=== PATIENT | female | born 1950 | race Caucasian/White ===

== ENCOUNTER 2020-11-16 05:51 | Outpatient (CLI) | payer MEDICARE, OTHER ==
[~2020-11-16] VITALS: Ht 167.7 cm; Wt 72.7 kg
[2020-11-16] MEDS ORDERED: ASPI-999 PO (15:44)
[2020-11-16] MEDS ORDERED: MV-M1TAB57 PO (15:44)
== END 2020-11-16 15:50 | disposition home or self-care (01) ==
LOC: PREOP 05:51
PROVIDERS: ATTEND Specialist
DX: Z01.818 Encounter for other preprocedural examination (principal)

== ENCOUNTER 2020-11-19 11:29 | Day surgery (SDC) | payer MEDICARE, OTHER ==
[~2020-11-19] VITALS: Ht 167.7 cm; Wt 72.7 kg
[~2020-11-19 11:29] MED LIST: ASPI-999 PO; MV-M1TAB57 PO
[2020-11-19 11:45] VITALS: BP 158/84
[2020-11-19] MEDS ORDERED: MOXIFLOXACIN OPHTH SOLN 5 MG/ML 0.3 ML SYRINGE OP ONE (11:45)
[2020-11-19] MEDS ORDERED: LIDOCAINE PF 1% 2 ML VIAL IR PRN (11:45)
[2020-11-19] MEDS ORDERED: POVIDONE (BETADINE) OPHTH SOLN 5% 30 ML OP ONE (11:45)
[2020-11-19] MEDS ORDERED: TIMOLOL MALEATE 0.5% 5 ML (TIMOPTIC) BTL OU PRN (11:45)
[2020-11-19] MEDS: TETRACAINE 0.5% OPHTH SOLN 4 ML BTL (SINGLE DOSE ONLY) OU PRN ×4 (11:46→12:05)
[2020-11-19] MEDS: PHENYLEPHRINE 10% OPHTH (NEO-SYN) 5 ML BTL OU SCH ×3 (11:55→12:05)
[2020-11-19] MEDS: TROPICAMIDE 1% OPH SOLN (MYDRIACYL) 15 ML BTL OP SCH ×3 (11:55→12:05)
[2020-11-19] MEDS ORDERED: MIDAZOLAM 2 MG/2 ML (VERSED) VIAL ONE (12:25)
[2020-11-19] MEDS ORDERED: ESMOLOL 100 MG/10 ML (BREVIBLOC) VIAL ONE (12:30)
--- NOTE | 2020-11-19 12:42 | Ophthalmologist Pre-Op Note ---
Pre-Operative Progress Note H&P Reviewed The H&P was reviewed, patient examined and no changes noted. Date H&P Reviewed: Nov 19, 2020 Time H&P Reviewed: 12:42 Pre-Op Dx Cataract, Left Eye GI CORDOVA MD Nov 19, 2020 12:42
--- NOTE | 2020-11-19 13:12 | Ophthalmology Operative Report ---
Cataract removal/placement IOL PREOPERATIVE DIAGNOSIS: Cataract Left Eye POSTOPERATIVE DIAGNOSIS: Cataract Left Eye PROCEDURE: Cataract removal and placement of posterior chamber implant, left eye SURGEON: Aly Cordova ANESTHESIA: Topical with sedation COMPLICATIONS: None ESTIMATED BLOOD LOSS: Minimal DESCRIPTION OF PROCEDURE: After proper informed consent was obtained, the patient, a 70 female, was taken to the Operating Room and the left eye was anesthetized with tetracaine. The left eye was then prepped and draped in the usual manner. A wire lid speculum was placed. A paracentesis was made at the left hand position. Preservative free lidocaine was injected into the anterior chamber followed by viscoelastic. A clear corneal incision was made in the temporal position. A capsulorrhexis was preformed and the central nuclear and cortical material were removed. The posterior capsule was polished and an Terry 21.0 AU00T0 was placed into the capsular bag. The residual viscoelastic was aspirated and balanced saline solution was injected into the anterior chamber. Moxifloxacin was injected into the anterior chamber. The wound was checked and found to be water tight. The patient tolerated the procedure well without complications. ALY CORDOVA MD Nov 19, 2020 13:12
[2020-11-19 13:15] VITALS: BP 138/77
--- NOTE | 2020-11-19 13:26 | Anesthesia-General Post-Op ---
MAC Patient Condition Mental Status/LOC: Same as Preop Cardiovascular: Satisfactory Nausea/Vomiting: Absent Respiratory: Satisfactory Pain: Controlled Complications: Absent Post Op Complications Complications None Follow Up Care/Instructions Patient Instructions None needed. Anesthesiology Discharge Order Discharge Order Patient was doing well after the procedure with no complaints, stable vital signs, no apparent adverse anesthesia problems. PRAKASH THOMAS DO Nov 19, 2020 13:26
[2020-11-19] MEDS ORDERED: acetaZOLAMIDE ER 500 MG CAP (DIAMOX SEQUELS) PO ONE (13:30)
== END 2020-11-19 13:15 ==
LOC: SDC 11:29
PROVIDERS: ATTEND Specialist
DX: H25.12 Age-related nuclear cataract, left eye (principal); M19.90 Unspecified osteoarthritis, unspecified site; Z79.82 Long term (current) use of aspirin
CPT/HCPCS: 66984; V2632

== ENCOUNTER 2020-12-17 07:29 | Outpatient (CLI) | payer MEDICARE, OTHER ==
[~2020-12-17] VITALS: Ht 165.1 cm; Wt 75.0 kg
[2020-12-17] MEDS ORDERED: GLUC100016 PO (13:21)
== END 2020-12-17 13:30 | disposition home or self-care (01) ==
LOC: PREOP 07:29
PROVIDERS: ATTEND Specialist
DX: Z01.818 Encounter for other preprocedural examination (principal)

== ENCOUNTER 2020-12-24 11:26 | Day surgery (SDC) | payer MEDICARE, OTHER ==
[~2020-12-24] VITALS: Ht 165.1 cm; Wt 75.0 kg
[~2020-12-24 11:26] MED LIST changes: +GLUC100016 PO
[2020-12-24] MEDS ORDERED: POVIDONE (BETADINE) OPHTH SOLN 5% 30 ML OP ONE (12:00)
[2020-12-24] MEDS ORDERED: LIDOCAINE PF 1% 2 ML VIAL IR PRN (12:00)
[2020-12-24] MEDS ORDERED: TIMOLOL MALEATE 0.5% 5 ML (TIMOPTIC) BTL OU PRN (12:00)
[2020-12-24] MEDS ORDERED: MOXIFLOXACIN OPHTH SOLN 5 MG/ML 0.3 ML SYRINGE OP ONE (12:00)
[2020-12-24] MEDS ORDERED: acetaZOLAMIDE ER 500 MG CAP (DIAMOX SEQUELS) PO ONE (12:00)
[2020-12-24] MEDS ORDERED: MIDAZOLAM 2 MG/2 ML (VERSED) VIAL ONE (12:01)
[2020-12-24] MEDS: TETRACAINE 0.5% OPHTH SOLN 4 ML BTL (SINGLE DOSE ONLY) OU PRN ×4 (12:04→12:20)
[2020-12-24] MEDS: PHENYLEPHRINE 10% OPHTH (NEO-SYN) 5 ML BTL OU SCH ×3 (12:10→12:20)
[2020-12-24] MEDS: TROPICAMIDE 1% OPH SOLN (MYDRIACYL) 15 ML BTL OP SCH ×3 (12:10→12:20)
--- NOTE | 2020-12-24 12:15 | Ophthalmologist Pre-Op Note ---
Pre-Operative Progress Note H&P Reviewed The H&P was reviewed, patient examined and no changes noted. Date H&P Reviewed: Dec 24, 2020 Time H&P Reviewed: 12:15 Pre-Op Dx Cataract, Right Eye GI CORDOVA MD Dec 24, 2020 12:15
[2020-12-24 12:21] VITALS: BP 181/91
[2020-12-24 13:18] VITALS: BP 147/63
--- NOTE | 2020-12-24 13:18 | Ophthalmology Operative Report ---
Cataract removal/placement IOL PREOPERATIVE DIAGNOSIS: Cataract Right Eye POSTOPERATIVE DIAGNOSIS: Cataract Right Eye PROCEDURE: Cataract removal and placement of posterior chamber implant, right eye SURGEON: Aly Cordova ANESTHESIA: Topical with sedation COMPLICATIONS: None ESTIMATED BLOOD LOSS: Minimal DESCRIPTION OF PROCEDURE: After proper informed consent was obtained, the patient, a 70 female, was taken to the Operating Room and the right eye was anesthetized with tetracaine. The right eye was then prepped and draped in the usual manner. A wire lid speculum was placed. A paracentesis was made at the left hand position. Preservative free lidocaine was injected into the anterior chamber followed by viscoelastic. A clear corneal incision was made in the temporal position. A capsulorrhexis was preformed and the central nuclear and cortical material were removed. The posterior capsule was polished and Terry 21.5 AU00T0 IOL was placed into the capsular bag. The residual viscoelastic was aspirated and balanced saline solution was injected into the anterior chamber. Moxifloxacin was injected into the anterior chamber. The wound was checked and found to be water tight. The patient tolerated the procedure well without complications. ALY CORDOVA MD Dec 24, 2020 13:18
--- NOTE | 2020-12-24 13:33 | Anesthesia-General Post-Op ---
MAC Patient Condition Mental Status/LOC: Same as Preop Cardiovascular: Satisfactory Nausea/Vomiting: Absent Respiratory: Satisfactory Pain: Controlled Complications: Absent Post Op Complications Complications None Follow Up Care/Instructions Patient Instructions None needed. Anesthesiology Discharge Order Discharge Order Patient is doing well, no complaints, stable vital signs, no apparent adverse anesthesia problems. No complications reported per nursing. HECTOR HINTON CRNA Dec 24, 2020 13:33
== END 2020-12-24 13:20 ==
LOC: SDC 11:26
PROVIDERS: ATTEND Specialist
DX: H25.11 Age-related nuclear cataract, right eye (principal); M19.90 Unspecified osteoarthritis, unspecified site; Z79.899 Other long term (current) drug therapy
CPT/HCPCS: 66984; V2632